=== PATIENT | female | born 1945 | race Caucasian/White ===

== ENCOUNTER 2016-09-07 01:34 | Emergency (ER) | payer BC, OTHER ==
[2016-09-07 01:41] VITALS: TEMP 98.4
--- NOTE | 2016-09-07 01:48 | CPEKG ---
Heart Rate: 68 RR Interval: 882 P-R Interval: 165 QRSD Interval: 84 QT Interval: 416 QTC Interval: 443 P [place]: 0 QRS [place]: 58 T Wave [place]: 59 EKG Severity - NORMAL ECG - EKG Impression: SINUS RHYTHM Electronically Signed By: Gala Munson 07-Sep-2016 23:10:25
[2016-09-07] MEDS ORDERED: ONDANSETRON 4 MG/2 ML VIAL ONE (02:04)
[2016-09-07] MEDS ORDERED: LORazepam 2 MG/ML INJ ONE (02:06)
[2016-09-07] MEDS ORDERED: LORazepam 2 MG/ML INJ IVP ONE (02:13)
[2016-09-07] MEDS ORDERED: NS 1,000 ML IV ONE (02:13)
[2016-09-07 02:15] LABS: % IMMATURE GRANULYOCYTES 0.4 % (0.0-1.1); ABSOLUTE IMMATURE GRANULOCYTES 0.04 10^3/uL (0.00-0.10); ADD DIFF? NO; ADD MORPH? NO; ADD SCAN? NO; ATYPICAL LYMPHOCYTE FLAG 0 (0-99); FRAGMENT RBC FLAG 0 (0-99); HEMATOCRIT 46.2 % (38.0-47.0); HEMOGLOBIN 16.2 g/dL (12.6-16.3); LEFT SHIFT FLG 0 (0-99); LIPEMIA HEMOLYSIS FLAG 90 (0-99); MEAN CELL HEMOGLOBIN 29.2 pg (27.9-34.1); MEAN CELL HEMOGLOBIN CONCENTR. 35.1 g/dL (32.4-36.7); MEAN CELL VOLUME 83.4 fL (81.5-99.8); MEAN PLATELET VOLUME 10.9 fL (8.7-11.7); PLATELET CLUMPS FLAG 0 (0-99); PLATELET COUNT 259 10^3/uL (150-400); RED BLOOD CELL COUNT 5.54 10^6/uL (4.18-5.33); RED CELL DISTRIBUTION WIDTH 13.3 % (11.5-15.2)
--- NOTE | 2016-09-07 02:20 | EDPHY ---
H & P Stated Complaint: chest and abd pain getting worse Time Seen by Provider: 09/07/16 01:53 HPI/ROS: HPI The patient presents with chest pain which has been present for the last approximately 2 weeks, it started slowly in her right shoulder and right anterior chest and has been present ever since. It is a pleuritic and sharp pain which does not radiate and is usually constant. It is not associated with any shortness of breath, nausea, vomiting, diaphoresis. Before the pain started she had a URI illness. She was seen in the emergency room on August 22 for the pain. She had a normal evaluation including chest x-ray, EKG, basic labs. She saw her PMD Dr. Garcia yesterday and the plan was for her to get a CT angio of her chest to evaluate for pulmonary embolism. However, the patient has had a difficult time scheduling this due to her insurance. REVIEW OF SYSTEMS Constitutional: No fever, no chills. Eyes: No discharge. ENT: No sore throat. Cardiovascular: + chest pain, no palpitations. Respiratory: No cough, no shortness of breath. Gastrointestinal: No abdominal pain, no vomiting. Genitourinary: No hematuria. Musculoskeletal: No back pain. Skin: No rashes. Neurological: No headache. PMHx: Multiple sclerosis Soc Hx: Lives at home with her PHYSICAL General Appearance: Alert, no distress Eyes: Pupils equal and round no pallor or injection ENT, Mouth: Mucous membranes moist Respiratory: There are no retractions, lungs are clear to auscultation Cardiovascular: Regular rate and rhythm Chest wall: Tenderness of right anterior chest just inferior to her clavicle with mild edema, no overlying skin changes Gastrointestinal: Abdomen is soft and non-tender, no masses, bowel sounds normal Neurological: A&O, moves all extremities Skin: Warm and dry, no rashes Musculoskeletal: Neck is supple non tender Extremities: symmetrical, full range of motion Psychiatric: Patient is oriented X 3, there is no agitation Source: Patient Exam Limitations: No limitations - Personal History Current Tetanus Diphtheria and Acellular Pertussis (TDAP): Yes - Medical/Surgical History Hx Asthma: No Hx Chronic Respiratory Disease: No Hx Diabetes: No Hx Cardiac Disease: No Hx Renal Disease: No Hx Cirrhosis: No Hx Alcoholism: No Other PMH: MS, hernia repair,appy - Social History Smoking Status: Former smoker Constitutional: Initial Vital Signs Temperature (C) 36.9 C 09/07/16 01:37 Heart Rate 101 H 09/07/16 01:37 Respiratory Rate 28 H 09/07/16 01:37 Blood Pressure 192/120 H 09/07/16 01:37 O2 Sat (%) 99 09/07/16 01:37 O2 Delivery Mode Room Air O2 (L/minute) 2 Allergies/Adverse Reactions: codeine Allergy (Mild, Verified 09/07/16 01:36) runny nose/sinus congestion amantadine Allergy (Unknown, Verified 09/07/16 01:36) Sulfa (Sulfonamide Antibiotics) Allergy (Unknown, Verified 09/07/16 01:36) Home Medications: Medication Instructions Recorded Glatiramer Acetate [Copaxone] 20 mg SQ 08/22/16 Medrol Dose Beni 09/07/16 Medical Decision Making - Diagnostics Imaging: CT chest with IV contrast: 1. No evidence of PE. 2. There is a stable 2.3 x 2.5 x 2.0 cm cyst in the right hepatic dome with HU of -13 (+/- 16 SD). 3. There is a right T10 hemangioma. 4.. Minimal bibasilar SSA vs scar, and tiny RLL pneumatocoele. Discussed with Dr. Salter of Radiology ED Course/Re-evaluation: The patient received Ativan in the emergency room because she was feeling quite anxious. This helped her significantly. Labs were obtained and were all unremarkable. CT scan of her chest was performed showing no pulmonary embolism. The patient was relieved to learn the results of her CT scan. The cause of her pain could be costochondritis. I have asked her to finished her Medrol Dosepak and after that she can take anti-inflammatories with food as needed for pain. If the pain continues, I have instructed her to follow up with her primary care doctor to obtain an ultrasound of her chest wall where she is feeling the area of fullness. She is in agreement with this plan. Her blood pressure is noted to be elevated during her time in the emergency room, I have asked her to follow up and recheck her blood pressure at a later date. Differential Diagnosis: This is a 71-year-old female with multiple sclerosis who presents from home with about 2 weeks of right-sided pleuritic chest pain and chest tenderness. Differential diagnosis includes pulmonary embolism, costochondritis, ACS, less likely aortic dissection. - Data Points Laboratory Results: Laboratory Results 09/07/16 01:50 09/07/16 01:50 09/07/16 01:50 WBC 10.92 H 10^3/uL (3.80-9.50) RBC 5.54 H 10^6/uL (4.18-5.33) Hgb 16.2 g/dL (12.6-16.3) Hct 46.2 % (38.0-47.0) MCV 83.4 fL (81.5-99.8) MCH 29.2 pg (27.9-34.1) MCHC 35.1 g/dL (32.4-36.7) RDW 13.3 % (11.5-15.2) Plt Count 259 10^3/uL (150-400) MPV 10.9 fL (8.7-11.7) Neut % (Auto) 77.8 H % (39.3-74.2) Lymph % (Auto) 14.7 L % (15.0-45.0) [place] % (Auto) 6.7 % (4.5-13.0) Eos % (Auto) 0.3 L % (0.6-7.6) Baso % (Auto) 0.1 L % (0.3-1.7) Nucleat RBC Rel Count 0.0 % (0.0-0.2) Absolute Neuts (auto) 8.50 H 10^3/uL (1.70-6.50) Absolute Lymphs (auto) 1.61 10^3/uL (1.00-3.00) Absolute Monos (auto) 0.73 10^3/uL (0.30-0.80) Absolute Eos (auto) 0.03 10^3/uL (0.03-0.40) Absolute Basos (auto) 0.01 L 10^3/uL (0.02-0.10) Absolute Nucleated RBC 0.00 10^3/uL (0-0.01) Immature Gran % 0.4 % (0.0-1.1) Immature Gran # 0.04 10^3/uL (0.00-0.10) Sodium 143 mEq/L (134-144) Potassium 3.9 mEq/L (3.5-5.2) Chloride 106 mEq/L (97-110) Carbon Dioxide 23 mEq/l (22-31) Anion Gap 14 mEq/L (8-16) BUN 22 mg/dL (7-23) Creatinine 0.7 mg/dL (0.6-1.0) Estimated GFR > 60 Glucose 99 mg/dL (70-100) Calcium 10.1 mg/dL (8.5-10.4) Troponin I 0.012 ng/mL (0-0.034) Medications Given: Discontinued Medications Sodium Chloride (Ns) 1,000 mls @ 0 mls/hr IV ONCE ONE PRN Reason: Wide Open Stop: 09/07/16 02:14 Last Admin: 09/07/16 02:16 Dose: 1,000 mls Lorazepam (Ativan Injection) 1 mg IVP EDNOW ONE Stop: 09/07/16 02:14 Last Admin: 09/07/16 02:16 Dose: 1 mg Departure - Departure Disposition: Home, Routine, Self-Care Clinical Impression: Chest wall pain, Elevated blood pressure reading Condition: Good Instructions: Chest Wall Pain (ED) Additional Instructions: Your CT scan of your lungs today showed no blood clot. The cause of your pain is likely related to costochondritis or pleurisy. You should finish your Medrol Dosepak. After that if you continue to have pain you should take anti- inflammatories. If you still feel the fullness in her chest wall in the next week, you should follow up with your primary care doctor to obtain an ultrasound to evaluate it. Referrals: Lucinda Garcia MD [Primary Care Provider] - As per Instructions
[2016-09-07 02:22] VITALS: PULSE 67; RESP 18; O2SAT 98
[2016-09-07 02:23] LABS: ANION GAP 14 mEq/L (8-16); CALCIUM 10.1 mg/dL (8.5-10.4); CARBON DIOXIDE 23 mEq/l (22-31); CHLORIDE 106 mEq/L (97-110); CREATININE 0.7 mg/dL (0.6-1.0); GLOMERULAR FILTRATION RATE > 60; GLUCOSE 99 mg/dL (70-100); POTASSIUM 3.9 mEq/L (3.5-5.2); SODIUM 143 mEq/L (134-144)
[2016-09-07] MEDS ORDERED: IOPAMIDOL (ISOVUE 370) 75 ML BTL IV ONE (02:31)
[2016-09-07 02:35] LABS: TROPONIN I 0.012 ng/mL (0-0.034)
[2016-09-07 04:23] VITALS: BP 153/113
--- NOTE | 2016-09-07 08:51 | CT ---
Contrast-Enhanced CT Scan of the Chest (CT Pulmonary Artery Angiography) Clinical History: 71-year-old female who has had pleuritic chest pain intermittently for two weeks. More specifically, she has had some shortness of breath and right upper anterior chest pain and left lateral chest pain. There has been no D-dimer level drawn, but the patient had a negative serum troponin level. There is no prior surgery history. Rule out PE. Technique: A timing bolus was used. The patient received 90 mL of IV Isovue- 370 without complication, and a multidetector helical CT scan was obtained from the base of the neck inferiorly to the upper abdomen, with images reformatted at 1.50 and overlapping 4/3 mm increments, and reviewed at a variety of window and level settings. Multiplanar reconstructions are reviewed on the workstation. DFOV: 32.8 cm. Dose reduction protocol was used. Comparison Studies: CT scan of the abdomen which included the lung bases, retrieved from archive status dated August 14, 2011, and chest radiography dated August 22, 2016. Findings: CT Angiography: The main pulmonary artery, the main right and the main left pulmonary arteries, and the first, second, and third order pulmonary artery segments are contrast-opacified, with no filling defect identified to suggest acute or chronic thromboemboli. There is no interventricular septal bowing. There is no reflux of contrast into the intrahepatic IVC. The thoracic aortic contour is normal, with no aneurysm or dissection. There is a normal anatomic arrangement of the great vessels off the aortic arch. The upper abdominal aorta is normal in size. The heart size is normal. Contrast-Enhanced CT Scan of the Chest: The thyroid gland appears normal. There are some mild dependent changes seen posteriorly at the lung bases. There is some minimal linear subsegmental atelectasis versus scar. There is a tiny rounded stable pneumatocele at the right costophrenic angle. There is no pleural effusion or adenopathy. The subcutaneous tissues are unremarkable. There is a hemangioma involving the right T10 level. The visualized upper abdomen is notable for a stable 2.3 x 2.5 x 2.0 cm rounded cyst in the right hepatic dome with a Hounsfield unit measurement of -13 (and a standard deviation of 16 HU). There is moderate constipation at the level of the hepatic flexure. Impression: 1. There is no CT evidence of pulmonary artery thromboemboli or aortic dissection. 2. Mild bibasilar subsegmental atelectasis versus scar. 3. There is a stable 2.3 x 2.5 x 2.0 cm cyst in the right hepatic dome, unchanged from August 14, 2011. I provided a preliminary report to Dr. Soheila Rangel at 3:15 a.m. on September 07, 2016 regarding the above findings. My final interpretation is concordant with my initial impression. POS99 MTDD
== END 2016-09-07 04:23 | disposition home or self-care (01) ==
DX: R07.89 Other chest pain (principal); R03.0 Elevated blood-pressure reading, without diagnosis of hypertension; Z87.891 Personal history of nicotine dependence
CPT/HCPCS: 96374; J2405

== ENCOUNTER → 2016-09-18 | Outpatient (CLI) | payer BC ==
--- NOTE | 2016-09-18 09:31 | MR ---
MRI Chest Without Contrast HISTORY: Pain in right shoulder and sternoclavicular joint. Evaluate for possible infection. ICD 10 c ode L08.9. M25.511. COMPARISON: CT angiogram chest September 07, 2016. TECHNIQUE: MRI was performed of the anterior chest using a 1.5 Yvonne MRI system. Field of view is frank tered over the sternoclavicular joints. Sagittal, coronal, and axial imaging was obtained with standa rd imaging sequences. The images from the scanner incorrectly labeled left and right side as the heriberto ent was imaged prone and the scanner thought the patient was supine. FINDINGS: There is mild hypertrophy and minimal spurring at the right sternoclavicular joint. There i s minimal bone marrow edema and fluid at the right sternoclavicular joint. No evidence for erosion or pericapsular edema. Anterior spurring is seen just inferior to the right sternoclavicular joint at t he costosternal junction. No evidence for an abnormal fluid collection or soft tissue mass. IMPRESSION: Mild degenerative change at the right sternoclavicular joint. No evidence for osteomyelit is or erosion. More predominant anterior spurring and degenerative change at a costosternal junction inferior to the right sternoclavicular joint. If there is further concern for the left shoulder pain a dedicated study of the right shoulder could be performed.
== END ==
LOC: FIMAGING 06:59
PROVIDERS: ATTEND Internal Medicine
DX: M77.9 Enthesopathy, unspecified (principal)

== ENCOUNTER → 2016-10-10 | Outpatient (CLI) | payer BC | LOC: CIMAGING 14:08 | DX: Z12.31 Encounter for screening mammogram for malignant neoplasm of breast (principal) | CPT/HCPCS: G0202 ==

== ENCOUNTER → 2016-10-11 | Outpatient (CLI) | payer BC | LOC: BMCIMAGING 09:22 | PROVIDERS: ATTEND Internal Medicine | DX: M85.841 Other specified disorders of bone density and structure, right hand (principal) ==

== ENCOUNTER → 2017-05-30 | Outpatient (CLI) | payer BC | LOC: FIMAGING 12:39 | DX: G35 Multiple sclerosis (principal) ==

== ENCOUNTER → 2017-10-30 | Outpatient (CLI) | payer OTHER, MEDICARE | LOC: CIMAGING 09:35 | PROVIDERS: ATTEND Internal Medicine | DX: Z12.31 Encounter for screening mammogram for malignant neoplasm of breast (principal) ==

== ENCOUNTER 2018-02-15 06:04 | Emergency (ER) | payer OTHER, MEDICARE ==
--- NOTE | 2018-02-15 06:15 | CPEKG ---
Heart Rate: 69 RR Interval: 870 P-R Interval: 160 QRSD Interval: 82 QT Interval: 412 QTC Interval: 442 P [place]: 78 QRS [place]: 50 T Wave [place]: 54 EKG Severity - NORMAL ECG - EKG Impression: SINUS RHYTHM Electronically Signed By: Chandrakant Marie 15-Feb-2018 06:55:05
[2018-02-15] MEDS ORDERED: LIDOCAINE 2% VISCOUS 15 ML UDCUP PO ONE (06:48)
[2018-02-15] MEDS ORDERED: PANTOPRAZOLE SODIUM 40 MG VIAL IVP ONE (06:48)
[2018-02-15] MEDS ORDERED: MAG HYDROX/AL HYDROX/SIMETH 30 ML UDCUP PO ONE (06:48)
--- NOTE | 2018-02-15 06:53 | EDPHY ---
H & P <Jesus Hernández - Last Filed: 02/15/18 09:19> Stated Complaint: Upper chest pain since yesterday. ASA this am. Source: Patient Exam Limitations: No limitations - Personal History Current Tetanus/Diphtheria Vaccine: Unsure Current Tetanus Diphtheria and Acellular Pertussis (TDAP): Unsure - Medical/Surgical History Hx Asthma: No Hx Chronic Respiratory Disease: No Hx Diabetes: No Hx Cardiac Disease: No Hx Renal Disease: No Hx Cirrhosis: No Hx Alcoholism: No Hx HIV/AIDS: No Hx Splenectomy or Spleen Trauma: No Other PMH: MS, hernia repair, appy, HTN, digestive issues-gluten free, constipation. - Family History Significant Family History: No pertinent family hx (Father in his 80s of myocardial infarction, mother is in her 90s currently) - Social History Smoking Status: Never smoked Alcohol Use: None Drug Use: None <Chandrakant Marie - Last Filed: 02/16/18 03:30> Time Seen by Provider: 02/15/18 06:17 HPI/ROS: CHIEF COMPLAINT: Upper chest discomfort, bilateral HISTORY OF PRESENT ILLNESS: This is a 72-year-old female with known MS as well as"digestive issues". She recalls being out yesterday and some errands and was at target when she started noticing discomfort across the upper chest just underneath the area of the clavicles. This discomfort has essentially been continuous ever since, nonpleuritic, but maybe a little worse when she twists or bends such as rolling in bed last night. The pain itself is not migrated nor as a to the radiated into the back or interscapular area or down the arms or into the jaw. There has been no associated diaphoresis or shortness of breath. She did have some nausea however as she is known to have"digestive issues"she attributed that to the latter. The discomfort is described as mild to moderate. Achy like sensation. She went to bed with the discomfort. I have been there all day. She woke up at 2 3 in the morning was unable to get back to sleep. She tried a whole host of medications try to make pain go away including aspirin 650 mg enteric-coated , as well as Rolaids. This did not improve things. Of note on the enteric-coated aspirin she has been directed to take that daily by her PCP. In actuality was 81 mg recommended but that was bothering her so she took the enteric coated. She also takes enteric-coated for other things and other aches and pains as well Older records were reviewed. She was seen in July of 2016 as well as August 2016 for chest pain. She had a negative CT angiogram of the chest as part of the evaluation for this pleuritic chest pain. Cardiac Risk Factors: DM: No HTN: yes High Chol: No Smoking: No Family History: Father in his 80s had a history of coronary disease, bypass at approximately 80 Obesity: No SLE type illenss: No Hypertension yes Known Aortic aneurysm No Bicuspid aortic Valve No Aortic Valve disease No Family Hx of aortic dieseae No Polycystic Kidney Disease No Collagen vascular disease No Aortic Regurg Murmur No Aortic instrumentation recent: No Blunt trauma, recent Trauma PE/DVT risk factors Prior DVT/PE: No Immobilization: No Splint/Cast: No Surgery, recently: No Family history of hypercoaguable syndrome: No Unilateral leg swelling: No Obesity: No REVIEW OF SYSTEMS: Constitutional: No fever, no chills. Eyes: No discharge ENT: No sore throat. Cardiovascular: No palpitations. Respiratory: No cough, shortness of breath, or wheezing. Gastrointestinal: No nausea vomiting or diarrhea. No abdominal pain. Genitourinary: No hematuria or frequency. Musculoskeletal: No back pain. Skin: No rashes. Neurological: No headache. 10 point ROS otherwise negative (CynthiaChandrakant martell) - Physical Exam Exam: General Appearance: Alert, no distress. Afebrile. Normal phonation. No respiratory distress. Eyes: Pupils equal and round no pallor or injection. No icterus ENT, Mouth: Mucous membranes moist Pharynx without erythema or exudate. TM Clear. Neck: No adenopathy. Supple. No JVD. Trachea in midline. Respiratory: There are no retractions, lungs are clear to auscultation. Chest wall: There is no tenderness to the costochondral cartilages. She is tender in the vicinity of the right clavicle however that is been an area of sensitivity since August. Cardiovascular: Regular rate and rhythm, no murmur Abdomen: Soft, no masses, no pulsatile masses, bowel sounds normal. Femoral pulses equal. There is epigastric tenderness that does not reproduce the pain in the upper chest area. This is in the midline. No Merritt sign Neurological: Ox3. No motor weakness. Sensation intact. Gait nl. Skin: Warm and dry, no rashes. Musculoskeletal: No joint swelling. Extremities: No edema. Homans sign negative. No cords. Psychiatric: Normal affect. Patient is oriented X 3. There is no agitation ( Chandrakant Marie) Constitutional: Initial Vital Signs Temperature (C) 36.8 C 02/15/18 06:16 Heart Rate 81 02/15/18 06:16 Respiratory Rate 17 02/15/18 06:16 Blood Pressure 163/111 H 02/15/18 06:16 O2 Sat (%) 97 02/15/18 06:16 O2 Delivery Mode Room Air Allergies/Adverse Reactions: codeine Allergy (Mild, Verified 09/07/16 01:36) runny nose/sinus congestion amantadine Allergy (Unknown, Verified 09/07/16 01:36) gluten Allergy (Unknown, Verified 02/15/18 07:08) Sulfa (Sulfonamide Antibiotics) Allergy (Unknown, Verified 09/07/16 01:36) Home Medications: Medication Instructions Recorded Glatiramer Acetate [Copaxone] 20 mg SQ 08/22/16 Lotrel 5/10 mg Cap (*) 02/15/18 Medical Decision Making - Diagnostics Imaging: Discussed imaging studies w/ call or contact centre team leader Radiologist <Jesus Hernández - Last Filed: 02/15/18 09:19> <Chandrakant Marie - Last Filed: 02/16/18 03:30> - Diagnostics EKG Interpretation: EKG. Interpreted by me contemporaneously. See trace master. This is normal sinus rhythm with a heart rate of 69. Normal intervals. No ischemic changes. Unchanged when compared to EKG of September 07, 2016 (Chandrakant Marie) ED Course/Re-evaluation: Bedside ultrasound was suboptimal though I was not able to see the gallbladder. No aortic aneurysm noted. Performed by me. Essentially this is very low risk chest pain in the setting of a 20 hr without progression, normal EKG and normal troponin. Thereby she will be given a GI cocktail as well as some IV Protonix. Patient did in fact take 2 tablets of 325 mg enteric-coated aspirin at 2:30 a.m. In the morning. Laboratory studies here before change of shift included a negative troponin level at 8:00 p.m. As well as a negative comp panel except for a minimally elevated glucose of 109. Normal liver studies Case d/w on coming ER Physician, Dr. Hernández. Findings reviewed as well as pending lab: Lipase Dimer CBC (Chandrakant Marie) Other Provider: 0700 care assumed by me from Dr. Marie pending ultrasound of the gallbladder. Is 72 week year old woman presenting upper chest discomfort since yesterday morning and has epigastric tenderness on examination. Her ECG is normal. Troponin is normal. She has no risk factors for PE. D-dimer is pending. LFTs are normal here. 0915 D-dimer is normal. Right upper quadrant ultrasound is negative per Dr. Vides. Patient is improved after GI cocktail. I think her symptoms are secondary to gastrointestinal process. 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 She has few risk factors for coronary disease or troponin is negative. ECG is normal. Will discharge with follow-up with her primary care physician as planned. (Jesus Hernández) - Data Points Laboratory Results: Laboratory Results 02/15/18 07:00 Medications Given: Discontinued Medications Al Hydroxide/Mg Hydroxide (Maalox Susp) 30 ml PO ONCE ONE Stop: 02/15/18 06:49 Last Admin: 02/15/18 07:00 Dose: 30 ml Lidocaine (Lidocaine 2% Viscous) 15 ml PO ONCE ONE Stop: 02/15/18 06:49 Last Admin: 02/15/18 07:00 Dose: 15 ml Pantoprazole Sodium (Protonix) 40 mg IVP EDNOW ONE Stop: 02/15/18 06:49 Last Admin: 02/15/18 07:00 Dose: 40 mg Point of Care Test Results: Chemistry 02/15/18 02/15/18 06:38 06:23 POC Sodium 141 mEq/L mEq/L (135-145) POC Potassium 4.3 mEq/L mEq/L (3.3-5.0) POC Chloride 108.0 mEq/L mEq/L (97-110) POC Total CO2 26 mEq/L mEq/L (22-31) POC BUN 12 mg/dL mg/dL (7-23) POC Creatinine 0.8 mg/dL mg/dL (0.6-1.0) POC Glucose 109 mg/dL H mg/dL (70-100) POC Calcium 10.0 mg/dL mg/dL (8.5-10.4) POC Total Bilirubin 0.5 mg/dL mg/dL (0.1-1.4) POC AST 29 IU/L IU/L (14-46) POC ALT 25 IU/L IU/L (9-52) POC Alk Phosphatase 118 IU/L IU/L (38-126) POC Troponin I 0.01 ng/mL ng/mL (0.00-0.08) POC Total Protein 7.0 g/dL g/dL (6.3-8.2) POC Albumin 3.5 g/dL g/dL (3.5-5.0) Departure <Jesus Hernández - Last Filed: 02/15/18 09:19> <Chandrakant Marie - Last Filed: 02/16/18 03:30> - Departure Disposition: Home, Routine, Self-Care Clinical Impression: Chest pain Condition: Good Instructions: Chest Pain (ED) Additional Instructions: Follow up with primary care physician in 3-4 days for further evaluation. Return to the emergency department for increasing chest pain, shortness of breath. Abdominal pain, nausea, vomiting, fevers, chills, or any other concerns. Referrals: Lucinda Garcia MD [[facility] [place] Primary Care Provider] - As per Instructions
[2018-02-15 07:15] LABS: PLATELET COUNT 230 10^3/uL (150-400)
[2018-02-15 09:14] VITALS: BP 152/97
== END 2018-02-15 09:40 | disposition home or self-care (01) ==
LOC: CED 06:04
DX: R07.9 Chest pain, unspecified (principal); I10 Essential (primary) hypertension
CPT/HCPCS: 71045-PO; 76705-PO; 80053-PO; 84484-PO; 96374

== ENCOUNTER → 2018-09-28 | Outpatient (CLI) | payer OTHER, MEDICARE | LOC: FIMAGING 12:27 | PROVIDERS: ATTEND Physician Assistant | DX: R05 Cough (principal) ==

== ENCOUNTER → 2018-09-30 | Outpatient (CLI) | payer OTHER, MEDICARE ==
[~2018-09-30] MED LIST: IOHEXOL 300 mgI/ML (OMNIPAQUE) 150 ML BTL IV ONE
== END ==
LOC: FIMAGING 12:30
PROVIDERS: ATTEND Physician Assistant
DX: R91.8 Other nonspecific abnormal finding of lung field (principal)
CPT/HCPCS: 71260; Q9967; 82565-PO

== ENCOUNTER → 2018-11-15 | Outpatient (CLI) | payer OTHER, MEDICARE | LOC: FIMAGING 08:43 | PROVIDERS: ATTEND Psychiatry & Neurology Neurology | DX: G35 Multiple sclerosis (principal); R94.02 Abnormal brain scan | CPT/HCPCS: 70551-PN ==

== ENCOUNTER → 2019-01-14 | Outpatient (CLI) | payer OTHER, MEDICARE | LOC: FIMAGING 07:45 | PROVIDERS: ATTEND Internal Medicine Critical Care Medicine | DX: R91.1 Solitary pulmonary nodule (principal) ==